=== PATIENT | female | born 1970 | race Caucasian/White ===

== ENCOUNTER 2017-10-04 17:37 | Emergency (ER) | payer OTHER ==
[~2017-10-04] VITALS: Ht 172.7 cm; Wt 59.0 kg
[~2017-10-04 17:37] MED LIST: DICLOFENAC SODI75 M2 PO
--- NOTE | 2017-10-04 17:52 | ED CARDIAC/CP/PALPITATIONS ---
History of Present Illness General Chief Complaint: Chest Pain Stated Complaint: CHEST PAIN SINCE YESTERDAY Source: patient Exam Limitations: no limitations Vital Signs & Intake/Output Vital Signs & Intake/Output Vital Signs Date Time Temp Pulse Resp B/P B/P Pulse O2 O2 Flow FiO2 Mean Ox Delivery Rate 10/05 2115 98.6 70 18 118/78 97 Room Air 10/04 190 98.5 74 20 112/80 98 Room Air 10/04 1750 97.6 73 16 131/87 99 Room Air Allergies Coded Allergies: NO KNOWN ALLERGIES (10/04/17) Reconcile Medications Diclofenac Sodium 75 MG TABLET. 1 TAB PO BID PRN pain Triage Note: PT TO ER C/C MID STERNAL C/P RADIATING TO LEFT SIDE OF HER BACK X 1 DAY. WORSE WHEN LAYING FLAT. PAIN WITH DEEP INSP. DENIES COUGH. Triage Nurses Notes Reviewed? yes Onset: Gradual Duration: day(s): (2), better, continues in ED Timing: single episode today Quality/Severity: mild, sharp Location: substernal, central Radiation: LEFT RIBS AND BACK Activities at Onset: none Prior Chest Pain/Card Workup: no prior chest pain, no prior cardiac workup Nitro Today/Relief: no nitro taken today Aspirin Today: no aspirin today LMP (ages 10-50): unknown : No Patient currently breastfeeds: No HPI: 39-year-old female with no past medical history presents for evaluation of chest pain. Patient states that she first noticed this pain yesterday while she was at rest. The pain is located on the left side of the chest and radiates into her left lateral ribs and left back. Since first time the pain has improved significantly. Currently she reports the pain as a 3 out of 10. It was at its worst yesterday. She describes it as sharp. There are no alleviating or aggravating factors. No worsening chest pain on exertion. No shortness of breath nausea vomiting sweats chills hemoptysis lower extremity edema. No recent surgery or recent trauma. No estrogen use. No history of PE. She has no family or personal history of cardiac disease. She is not taking any medicine for this. (Jeremias Menjivar) Past History Travel History Traveled to [place] past 21 day No Medical History Any Pertinent Medical History? see below for history Neurological: NONE EENT: NONE Cardiovascular: NONE Respiratory: NONE Gastrointestinal: NONE Hepatic: NONE Renal: NONE Musculoskeletal: NONE Psychiatric: NONE Endocrine: NONE Surgical History Surgical History: N Psychosocial History What is your primary language [place] Tobacco Use: Never used Family History Hx Contributory? No (Jeremias Menjivar) Review of Systems Review of Systems Constitutional: Reports: no symptoms. EENTM: Reports: no symptoms. Respiratory: Reports: no symptoms. Cardiovascular: Reports: see HPI, chest pain. GI: Reports: no symptoms. Genitourinary: Reports: no symptoms. Musculoskeletal: Reports: no symptoms. Skin: Reports: no symptoms. Neurological/Psychological: Reports: no symptoms. Hematologic/Endocrine: Reports: no symptoms. Immunologic/Allergic: Reports: no symptoms. All Other Systems: Reviewed and Negative (Jeremias Menjivar) Physical Exam Physical Exam General Appearance: well developed/nourished, no apparent distress, alert, awake Head: atraumatic, normal appearance Eyes: Bilateral: normal appearance, PERRL, EOMI. Ears, Nose, Throat: normal pharynx, normal ENT inspection, hearing grossly normal Neck: normal inspection, supple, full range of motion Respiratory: normal breath sounds, chest non-tender, no respiratory distress, lungs clear Cardiovascular: regular rate/rhythm, normal peripheral pulses Peripheral Pulses: 2+ brachial (R), 2+ brachial (L) Gastrointestinal: soft, non-tender Back: normal inspection, normal range of motion, no vertebral tenderness Extremities: normal inspection, normal range of motion, no edema Neurologic/Psych: no motor/sensory deficits, awake, alert, oriented x 3, normal gait Skin: intact, normal color, warm/dry Lymphatic: no anterior cervical mikayla Core Measures ACS in differential dx? Yes No ASA d/t RULED OUT CVA/TIA Diagnosis No Sepsis Present: No Sepsis Focused Exam Completed? No (Jeremias Menjivar) Progress Differential Diagnosis: AMI, aortic dissection, atrial fibrillation, CHF/pulm edema, costochondritis, musculoskeletal pain, pancreatitis, pericarditis, pneumonia, pneumothorax, PSVT, pulmonary embolism, PUD/GERD, PVCs/PACs, rib fracture, unstable angina Plan of Care: Orders Procedure Date/time Status TROPONIN LEVEL 10/04 2014 Complete EKG 10/04 2014 Active TROPONIN LEVEL 10/04 1740 Complete COMPREHENSIVE METABOLIC PANEL 10/04 174 Complete CBC WITHOUT DIFFERENTIAL 10/05 1739 Complete EKG 10/04 1738 Active Laboratory Tests 04/02/18 2038: Troponin I < 0.01 10/04/171821: Anion Gap 10, Estimated GFR > 60, BUN/Creatinine Ratio 27.5 H, Glucose 101 H, Calcium 9.4, Total Bilirubin 0.5, AST 11 L, ALT 15, Alkaline Phosphatase 37, Troponin I < 0.01, Total Protein 7.1, Albumin 4.1, Globulin 3.0, Albumin/ Globulin Ratio 1.4, CBC w Diff NO MAN DIFF REQ, RBC 4.31, MCV 90.0, MCH 30.1, MCHC 33.4, RDW 13.2, MPV 7.0 L, Gran % 62.2, Lymphocytes % 26.9, Monocytes % 10.0 H, Eosinophils % 0.4, Basophils % 0.5, Absolute Granulocytes 4.7, Absolute Lymphocytes 2.0, Absolute Monocytes 0.8 H, Absolute Eosinophils 0, Absolute Basophils 0 Patient seen and evaluated. She is here with chest pain that started yesterday has improved significant recent first starting. She is PERC NEGATIVE. She has no cardiac history. She currently rates the pain as a 3 out of 10 in severity has improved significantly since first started. There's no shortness of breath. We'll check basic blood work chest x-ray and EKG. Patient was medicated with Tylenol. She refused any medication with Tylenol. She states she does not feel like the pain is significant enough to require medication. All blood work is within normal limits chest x-ray is clear. Initial EKG showed some inverted T waves in the anterior leads. These were present on previous EKG however they seemed more deeply inverted so a repeat EKG and troponin was ordered. Repeat troponin is negative repeat EKG is unchanged. Patient reports continuing improvement in her pain. Reviewed all results of today's visit with patient. Advised her to use Tylenol as needed for pain. Follow-up with primary care doctor and provided amortization schedule clerk. Discussed return precautions. Case discussed with Dr. Avery he agrees. Diagnostic Imaging: Viewed by Me: Radiology Read. Discussed w/RAD: Radiology Read. CXR Impression: PATIENT: HARISH BANERJEE PRESENT AGE: 47 PATIENT ACCOUNT NO: [id number] : 69 LOCATION: [facility] ORDERING PHYSICIAN: Jeremias RUSSELL SERVICE DATE: 04/02/18-1740 EXAM TYPE: RAD - XRY-CHEST XRAY, TWO VIEWS EXAMINATION: XR CHEST CLINICAL INFORMATION: Chest pain and shortness of breath COMPARISON: None TECHNIQUE: 2 views of the chest were obtained. FINDINGS: The lungs are well-inflated and clear. Trachea is midline in position. No evidence of interstitial disease, focal consolidation, mass, pneumothorax or pleural effusion. The cardiomediastinal silhouette and pulmonary suman have normal size and contour. Mild spondylosis of the thoracic spine. The examined upper abdomen is unremarkable. IMPRESSION: No acute pulmonary disease. DICTATED BY: Taj Muñoz MD DATE/TIME DICTATED:10/04/171822 PICKERS MATERIAL HANDLERS: VIV DATE/TIME TRANSCRIBED:10/04/171822 CONFIDENTIAL, DO NOT COPY WITHOUT APPROPRIATE AUTHORIZATION. <Electronically signed in Other Vendor System> SIGNED BY: Taj Muñoz MD 10/04/171828 Initial ED EKG: normal sinus rhythm, nonspecific ST T wave chg (ANTERIOR ) Prior EKG: unchanged (Jeremias Menjivar) Departure Departure Disposition: HOME OR SELF CARE Condition: Stable Clinical Impression Primary Impression: Chest pain Qualifiers: Chest pain type: unspecified Qualified Code: R07.9 - Chest pain, unspecified Referrals: Mary Lou VARGAS PHD,Vikas Sin MD,Vikas Eller (PCP/Family) Additional Instructions: Follow-up with you primary care doctor. Tylenol or ibuprofen for pain. Monitor symptoms closely return with any concerns. Departure Forms: Customer Survey General Discharge Information (Jeremias Menjivar) PA/CAFETERIA AIDE Co-Sign Statement Statement: ED Attending supervision documentation- I saw and evaluated the patient. I have also reviewed all the pertinent lab results and diagnostic results. I agree with the findings and the plan of care as documented in the PA's/CAFETERIA AIDE's documentation. x I have reviewed the ED Record and agree with the PA's/CAFETERIA AIDE's documentation. [] Additions or exceptions (if any) to the PAs/CAFETERIA AIDE's note and plan are summarized below: [] (Gena VARGAS,Torres) Critical Care Note Critical Care Note Critical Care Time: non-applicable (Jeremias Menjivar)
--- NOTE | 2017-10-04 18:29 | RADIOLOGY REPORT ---
EXAMINATION: XR CHEST CLINICAL INFORMATION: Chest pain and shortness of breath COMPARISON: None TECHNIQUE: 2 views of the chest were obtained. FINDINGS: The lungs are well-inflated and clear. Trachea is midline in position. No evidence of interstitial disease, focal consolidation, mass, pneumothorax or pleural effusion. The cardiomediastinal silhouette and pulmonary suman have normal size and contour. Mild spondylosis of the thoracic spine. The examined upper abdomen is unremarkable. IMPRESSION: No acute pulmonary disease.
[2017-10-04 18:31] LABS: ABSOLUTE BASOPHIL COUNT 0 /CUMM (0.0-0.2); ABSOLUTE EOSINOPHIL COUNT 0 /CUMM (0.0-0.7); ABSOLUTE GRANULOCYTE CT 4.7 /CUMM (1.4-6.5); ABSOLUTE MONOCYTE COUNT 0.8 /CUMM (0.10-0.60); BASOPHIL % 0.5 % (0.0-2.0); EOSINOPHIL % 0.4 % (0-5); GRANULOCYTE % 62.2 % (42.2-75.2); HEMATOCRIT 38.8 % (37-47); MEAN CORPUSCULAR HGB 30.1 PG (27.0-31.0); MEAN CORPUSCULAR HGB CONC 33.4 G/DL (33.0-37.0); PLATELET COUNT 343 /CUMM (130-400); RBC DISTRIBUTION WIDTH 13.2 % (11.5-14.5); RED BLOOD CELL CT 4.31 /CUMM (4.20-5.40); WHITE BLOOD CELL COUNT 7.6 /CUMM (4.8-10.8)
[2017-10-04 21:16] VITALS: BP 118/78
== END 2017-10-04 21:37 ==
LOC: ERH 17:37
PROVIDERS: Physician Assistant Medical
DX: R07.9 Chest pain, unspecified (principal)
CPT/HCPCS: 71046; 93005; 93010